=== PATIENT | male | born 1990 | race African-American/Black ===

== ENCOUNTER → 2019-07-15 | Outpatient (CLI) | payer BC ==
--- NOTE | 2019-07-15 14:49 | Diagnostic Imaging Report ---
EXAM: CT Abdomen and Pelvis WITHOUT intravenous contrast INDICATION: Flank pain COMPARISON: None. TECHNIQUE: Abdomen and pelvis were scanned utilizing a multidetector helical scanner from the lung base to the pubic symphysis without administration of IV contrast. Coronal and sagittal reformations were obtained. IV CONTRAST: None ORAL CONTRAST: None COMPLICATIONS: None RADIATION DOSE: Total DLP: 354 mGy*cm Dose modulation, iterative reconstruction, and/or weight based adjustment of the mA/kV was utilized to reduce the radiation dose to as low as reasonably achievable. FINDINGS: LOWER THORAX: Normal. HEPATOBILIARY: No focal liver lesion. Decompressed gallbladder. SPLEEN: No splenomegaly. PANCREAS: No focal masses or ductal dilatation. ADRENALS: No adrenal nodules. KIDNEYS/URETERS: No hydronephrosis, stones, or solid mass lesions. PELVIC ORGANS/BLADDER: Unremarkable. PERITONEUM / RETROPERITONEUM: No free air or fluid. LYMPH NODES: No lymphadenopathy. VESSELS: Unremarkable. GI TRACT: No abnormal bowel thickening. No bowel obstruction. BONES AND SOFT TISSUES: No acute osseous injury. No suspicious lytic or blastic lesions. IMPRESSION: No acute findings in the abdomen or pelvis. Specifically, no hydronephrosis or renal calculi. Signed by: Linda Machado MD on 07/15/2019 2:45 PM
== END ==
LOC: CT 12:50
PROVIDERS: ATTEND Emergency Medicine
DX: R10.9 Unspecified abdominal pain (principal)
CPT/HCPCS: 74176

== ENCOUNTER 2020-06-16 09:04 | Emergency (ER) | payer SELFPAY ==
[~2020-06-16] VITALS: Ht 177.8 cm; Wt 94.3 kg
[2020-06-16] MEDS ORDERED: PENICILLIN G BENZATHINE 600000 UNIT/1 ML IM STA (09:58)
[2020-06-16] MEDS ORDERED: DEXAMETHASONE SOD PHOS 10 MG/1 ML VIAL IM ONE (10:00)
[2020-06-16] MEDS ORDERED: LIDOCAINE VISC 2% SOLN 15 ML UDC PO ONE (10:15)
[2020-06-16] MEDS ORDERED: DEXAMETHASONE SOD PHOS INJ 4 MG/ML VIAL ONE (10:23)
[2020-06-16] MEDS ORDERED: PENICILLIN G BENZATHINE LA 1.2 MU TBX ONE (10:23)
[2020-06-16 10:39] VITALS: BP 121/80
== END 2020-06-16 10:35 | disposition home or self-care (01) ==
LOC: FSED 09:29
DX: R50.9 Fever, unspecified (principal); J02.0 Streptococcal pharyngitis; R13.10 Dysphagia, unspecified; I10 Essential (primary) hypertension
CPT/HCPCS: 81003; 83518; 87400; 96372; 99283; J0561; J1100 ×2